=== PATIENT | male | born 1970 | race Two or more races ===

== ENCOUNTER 2019-12-26 18:24 | Emergency (ER) | payer OTHER ==
[~2019-12-26] VITALS: Ht 172.7 cm; Wt 81.6 kg
[2019-12-26] MEDS ORDERED: NORVASC2.5 MG PO (18:39)
[2019-12-27] MEDS ORDERED: PROTONIX20 MG PO (03:45)
[2019-12-27] MEDS ORDERED: DICY20TA PO (03:45)
[2019-12-27] MEDS ORDERED: FLAGYL500MG PO (03:45)
[2019-12-27] MEDS ORDERED: CIPRO500 MG PO (03:45)
== END 2019-12-27 03:54 | disposition home or self-care (01) ==
LOC: ER 18:24
DX: K57.92 Diverticulitis of intestine, part unspecified, without perforation or abscess without bleeding (principal)